=== PATIENT | male | born 1990 | race Caucasian/White ===

== ENCOUNTER 2022-03-29 09:00 | Outpatient (CLI) | payer OTHER, SELFPAY ==
[2022-03-29 09:16] LABS: Hematocrit 42.8 % (42.0-52.0); Hemoglobin 14.7 g/dL (14.0-18.0); Mean Corpuscular HGB Conc 34.3 g/dl (32-36); Mean Corpuscular Hemoglobin 30.5 pg (26-34); Mean Corpuscular Volume 88.8 fl (80-100); Mean Platelet Volume 9.5 fl (7.4-10.4); Platelet Count Result 227 k/mm3 (150-375); Red Blood Count 4.82 M/mm3 (4.6-6.20); White Blood Count 5.1 K/mm3 (4.5-10.0)
[2022-03-29 13:37] LABS: Free T4 Free Thyroxine Reflex 0.48 ng/dL (0.78-2.19)
[2022-04-03 11:12] LABS: TTG IGA AB <1.0
[2022-04-03 11:13] LABS: Gliadin AB, IgG <1.0
== END 2022-03-29 09:01 | disposition home or self-care (01) ==
PROVIDERS: Visit Provider Nurse Practitioner
DX: E66.9 Obesity, unspecified (principal); K21.9 Gastro-esophageal reflux disease without esophagitis; R19.7 Diarrhea, unspecified
CPT/HCPCS: 36415; 83516; 84439; 84443; 85027

== ENCOUNTER 2022-03-30 16:17 | Outpatient (CLI) | payer OTHER, SELFPAY ==
[2022-03-30 18:48] LABS: Free T4 Free Thyroxine Reflex 0.51 ng/dL (0.78-2.19)
[2022-04-02 05:28] LABS: Triiodothyronine T3 Free 2.7 pg/mL (2.3-4.2)
== END 2022-03-30 16:18 | disposition home or self-care (01) ==
LOC: ANHLAB 16:20
DX: R79.89 Other specified abnormal findings of blood chemistry (principal)
CPT/HCPCS: 36415; 84439; 84443; 84481

== ENCOUNTER 2022-03-31 09:05 | Outpatient (CLI) | payer OTHER, SELFPAY ==
[2022-04-06 21:54] LABS: Calprotectin, Stool 126 mcg/g
== END 2022-03-31 09:06 | disposition home or self-care (01) ==
LOC: ANHLAB 09:07
PROVIDERS: Visit Provider Nurse Practitioner
DX: R19.7 Diarrhea, unspecified (principal); K21.9 Gastro-esophageal reflux disease without esophagitis; E66.9 Obesity, unspecified
CPT/HCPCS: 83993

== ENCOUNTER 2022-05-05 01:37 | Day surgery (SDC) | payer OTHER, SELFPAY ==
[2022-04-26 14:43] VITALS: BMI 31.1
--- NOTE | 2022-05-05 12:00 | PM.HPGS ---
History of Present Illness History of Present Illness Consent: Risks, benefits, and alternatives have been discussed and questions answered. Patient agrees to proceed with procedure. Chief complaint: GERD; loose stools Narrative: Garry Rausch is a 31 year old male suffers from chronic nausea. 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 He has not lost weight. He did vomit once a couple of weeks ago. He also has had chronic diarrhea, ever since he was in college. It is exacerbated by drinking coffee. He gets lower abdominal cramping pain with bowel movements. Review of Systems Review of Systems: All systems reviewed & are unremarkable except as noted in HPI and below PMFSH Past Medical History Medical History Frequent loose stools Nausea Obesity (BMI 30-39.9) Social History Social History Smoking status: Never smoker Second hand tobacco smoke exposure: No Alcohol intake: current Alcohol use details: rarely - socially Substance use: former Substance use type: marijuana Other substance usage details: smoked last 10-15 years ago Living arrangements: with family Gender identity (if verbalized by the patient): Male Spiritual care concerns: No Meds Home Medications and Allergies Home Medications Medication Instructions Recorded Confirmed Type lansoprazole 30 mg capsule,delayed 30 mg PO DAILY #30 caps 04/04/22 04/26/22 Rx release (Prevacid) levothyroxine 50 mcg tablet 50 mcg PO DAILY 04/26/22 04/26/22 History Allergies Allergy/AdvReac Type Severity Reaction Status Date / Time No Known Allergies Allergy Unknown Verified 04/26/22 14:45 Exam Const: General: alert Orientation/consciousness: patient oriented x3 Resp: Auscultation: clear to auscultation bilaterally Cardio: Rhythm: regular rhythm GI: GI Palp: Yes Soft to palpation and No Tenderness to palpation present (GI) Neuro: General: patient oriented x3 Assessment and Plan Assessment and plan (1) Nausea: Code(s): R11.0 - Nausea Status: Acute Assessment and Plan: EGD with possible biopsy or dilatation or cautery. (2) Chronic diarrhea: Code(s): K52.9 - Noninfective gastroenteritis and colitis, unspecified Status: Acute Assessment and Plan: Colonoscopy with possible biopsy or polypectomy or cautery or injection of substances.
[2022-05-05 12:09] VITALS: BP 134/90; PULSE 82; RESP 16; TEMP 35.8; O2SAT 98
[2022-05-05] MEDS: LACTATED RINGERS 1,000 ML 150 ML IV CONT (12:23)
--- NOTE | 2022-05-05 12:36 | WPDANESEPPF ---
Anes - Initial Pre Proc Eval Procedure: Operation Date: 05/05/22 13:30 Proposed Procedures p Esophagogastroduodenoscopy & Colonoscopy - Thierry Mejía MD Date/Time: 05/05/22 12:36 Surgeon: Thierry Mejía MD Pre Op Diagnosis: GERD; loose stools Patient Data Age: 31 Gender: M Height: 1.65 m Weight: 83.6 kg Last Vital Signs Temp 35.8 C L 05/05/22 12:09 Pulse 82 05/05/22 12:09 Resp 16 05/05/22 12:09 BP 134/90 05/05/22 12:09 Pulse Ox 98 05/05/22 12:09 O2 Del Method Room Air 05/05/22 12:09 Allergies Allergy/AdvReac Type Severity Reaction Status Date / Time No Known Allergies Allergy Unknown Verified 05/05/22 12:07 Home Medications Medication Instructions Recorded Confirmed Type lansoprazole 30 mg capsule,delayed 30 mg PO DAILY #30 caps 04/04/22 05/05/22 Rx release (Prevacid) levothyroxine 50 mcg tablet 50 mcg PO DAILY 04/26/22 05/05/22 History Patient hx anesthesia problems: none Family hx anesthesia problems: none Results Review: All pre-operative results and documents have been reviewed as part of the pre-operative evaluation. [facility] Past Medical History Medical History Frequent loose stools Nausea Obesity (BMI 30-39.9) Social History Social History Smoking status: Never smoker Second hand tobacco smoke exposure: No Alcohol intake: current Alcohol use details: rarely - socially Substance use: former Substance use type: marijuana Other substance usage details: smoked last 10-15 years ago Living arrangements: with family Gender identity (if verbalized by the patient): Male Spiritual care concerns: No Anes - Eval Final PreProcedure Day of Procedure 05/05/22 12:36 Patient weight: obese Heart: regular rate and rhythm Lungs: clear to auscultation Airway: Mallampati scale class II Neurological: alert and oriented Last oral intake: >/= 8 hours ASA classification: II Emergent: no Anesthetic plan: proceed Anesthesia type and monitoring: general GIVS and standard monitoring Results Review: All pre-operative results and documents have been reviewed as part of the pre-operative evaluation. Informed Consent: The patient's anesthetic plan and its attendant risks and benefits were discussed with the patient/family/POA. Questions were solicited and answers provided to the satisfaction of the patient/family/POA.
[2022-05-05] MEDS: BENZOCAINE (*SP) 60 ML SPRAY CAN (HURRICAINE) 1 SPRAY MUCOUS MEM (12:48)
--- NOTE | 2022-05-05 13:12 | SUR.OPER ---
EGD START 1249, END 1251 COLONOSCOPY START 1257, END 1309
[2022-05-05 13:13] VITALS: BP 124/79; PULSE 92; RESP 16; O2SAT 95
[2022-05-05 13:23] VITALS: BP 112/73; PULSE 83; RESP 16; O2SAT 97
[2022-05-05 13:33] VITALS: BP 106/66; PULSE 70; RESP 16; O2SAT 97
== END 2022-05-05 13:50 | disposition home or self-care (01) ==
PROVIDERS: Visit Provider Internal Medicine Gastroenterology
PROC: 0DJ08ZZ Inspection of Upper Intestinal Tract, Via Natural or Artificial Opening Endoscopic (ICD-10-PCS; CPT 43235; principal; 2022-05-05 13:30)
DX: R11.0 Nausea (principal); K52.9 Noninfective gastroenteritis and colitis, unspecified; K21.9 Gastro-esophageal reflux disease without esophagitis
CPT/HCPCS: 43239; 45380; 87081; 88305; J2704; J7120

== ENCOUNTER → 2022-12-29 11:21 | Outpatient (CLI) | payer OTHER, SELFPAY ==
--- NOTE | ~2022-12-29 | XR_ITS ---
EXAM: XR finger 1st LT min 2V DATE: 12/29/2022 12:43 HISTORY: Left thumb pain . COMPARISON: None available. FINDINGS: Normal mineralization. Ossific fragment adjacent to the proximal and anterior corner of th e first distal phalanx. No dislocation. No lytic or blastic lesion. Joint spaces are maintained. No e rosion or periosteal change. Soft tissues within normal limits. IMPRESSION: Volar plate avulsion fracture fragment versus sesamoid bone at the first distal phalanx, correlate with pain/tenderness and history of trauma to the thumb. Reviewed, dictated and finalized at location K. IMPRESSION: Volar plate avulsion fracture fragment versus sesamoid bone at the first distal phalanx, correlate with pain/tenderness and history of trauma to t he thumb.
== END ==
DX: M79.645 Pain in left finger(s) (principal)
CPT/HCPCS: 73140

== ENCOUNTER → 2023-01-25 08:04 | Outpatient (CLI) | payer OTHER, SELFPAY ==
--- NOTE | ~2023-01-25 | XR_ITS ---
PA, oblique, and lateral views of the left fourth finger CLINICAL HISTORY: Pain FINDINGS: No fracture or dislocation seen. Osseous alignment is anatomic. Joint spaces are preserved. Soft tissues are unremarkable. IMPRESSION: Unremarkable exam. Reviewed, dictated and finalized at location M. IMPRESSION: Unremarkable exam.
== END ==
DX: M79.645 Pain in left finger(s) (principal)
CPT/HCPCS: 73140

== ENCOUNTER 2024-09-30 07:15 | Emergency (ER) | payer OTHER, SELFPAY ==
--- NOTE | ~2024-09-30 | CT_ITS ---
CT thoracic lumbar wo con Ordering provider: Violetta Kendrick MD History: . back pain . Comparison: None. Technique: CT thoracic and lumbar spine without contrast. Automated exposure control and iterative r econstruction technique were employed. The dose-length product was 600.94 mGy-cm. FINDINGS: VERTEBRAE: Normal height and alignment. No subluxation or visible acute fracture. DISC SPACES: Well maintained. . No significant stenosis as visualized. Mild diffuse disc bulge at the level of L3-L4, L4-L5 and L5-S1. No definite intervertebral foraminal narrowing. PARASPINOUS SOFT TISSUES: Normal. IMPRESSION: No acute osseous abnormality of the thoracic spine. Multilevel mild disc bulge. Reviewed, dictated and finalized at location A.
--- NOTE | ~2024-09-30 | CT_ITS ---
CT cervical spine wo con Ordering provider: Violetta Kendrick MD History: . pain in low back when flex neck . Comparison: None. Technique: CT of the cervical spine was performed without contrast. Sagittal and coronal reformatted images were also obtained and reviewed. Automated exposure control and iterative reconstruction vignesh hnique were employed. The dose-length product was 336.31 mGy-cm. FINDINGS: VERTEBRAE: No subluxation or acute fracture. The occipital condyles are intact. DISC SPACES: Normal. Narrowing of the left foramina at the level of C3-C4. Bilateral narrowing of the foramina at the level of C4-C5. Narrowing of the left foramina at the level of C5-C6. PARASPINOUS SOFT TISSUES: Normal. IMPRESSION: No acute osseous abnormality cervical spine. Reviewed, dictated and finalized at location A.
--- OUTSIDE RECORDS SUMMARY | 2024-09-30 07:17 | XMS_ITS | Referral Summary ---
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 Role Phone Reinier Canales Primary Care Provider Encounters Date Type Department Care Team Description 09/29/2024 12:15 PM CDT Office Visit [facility] at [address] [address] Aurea Reardon NP Acute bilateral low back pain without sciatica (Primary Dx) 08/19/2024 Telephone [facility] [address] [place] [address] Reinier Canales PA 07/05/2024 Telephone [facility] [address] [address] Tiff Small MA from Last 3 Months Allergies No known active allergies Medications RABEprazole DR (ACIPHEX) 20 mg EC tablet TAKE 1 TABLET(20 MG) BY MOUTH DAILY 30 tablet 1 04/17/20 23 Active minoxidiL 5 % solution Apply daily to affected area 10 mL 6 02/18/20 24 Active Additional Information Patient not taking.Reported on 09/29/2024 fluticasone propionate (FLONASE) 50 mcg/actuation nasal sprayIndications: Left ear pain Administer 2 sprays into each nostril daily for 14 days 1 each 04/11/20 24 Active Additional Information Patient not taking.Reported on 09/29/2024 al & mag hydroxide with simethicone-diphe nhydramine-lidoca ine (MAGIC MOUTHWASH) suspension 1-1-1 Swish and spit 10 mL every 4 (four) hours as needed (mouth pain) 200 mL 06/09/20 24 Active Additional Information Patient not taking.Reported on 09/29/2024 chlorhexidine (PERIDEX) 0.12 % oral rinse Apply 15 mL to the mouth or throat 2 (two) times a day 120 mL 06/09/20 24 Active Additional Information Patient not taking.Reported on 09/29/2024 azithromycin (ZITHROMAX) 250 mg tablet Take 2 tabs (500 mg) by mouth today, than 1 daily for 4 days. 6 tablet 08/15/19 25 Active Additional Information Patient not taking.Reported on 09/29/2024 escitalopram (LEXAPRO) 10 mg tabletIndications :Anxiety Take 1 tablet (10 mg total) by mouth daily 30 tablet 5 08/19/19 25 Active levothyroxine (SYNTHROID) 125 mcg tablet Take 1 tablet (125 mcg total) by mouth daily 90 tablet 1 08/27/19 25 026 Active lisdexamfetamine (VYVANSE) 20 mg capsuleIndication s:Attention deficit hyperactivity disorder (ADHD), combined type Take 1 capsule (20 mg total) by mouth every morning 30 capsule 09/25/19 25 Active methylPREDNISolon e (MEDROL DOSEPACK) 4 mg DosepackIndicatio ns:Acute bilateral low back pain without sciatica Take 6 tabs on day 1, reduce dose by 1 daily until prescription is complete. 1 packet 09/30/19 25 Active TiZANidine (ZANAFLEX) 2 mg capsuleIndication s:Acute bilateral low back pain without sciatica Take 1 capsule (2 mg total) by mouth 2 (two) times a day as needed for muscle spasms 20 capsule 09/30/19 25 Active naproxen (NAPROSYN) 500 mg tabletIndications :Right foot pain Take 1 tablet (500 mg total) by mouth 2 (two) times a day with meals for 7 days 14 tablet 04/11/20 24 025 Discontin ued(Thera py completed ) lisdexamfetamine (VYVANSE) 20 mg capsuleIndication s:Attention deficit hyperactivity disorder (ADHD), combined type Take 1 capsule (20 mg total) by mouth every morning 30 capsule 08/27/19 25 025 Discontin ued([facility], Clinic, or Other Facility Administered Medication Ordered Dose Route Frequency Start Date End Date Status ketorolac (TORADOL) 60 mg/2 mL intramuscular injection 60 mgIndications:Acute bilateral low back pain without sciatica 60 mg IM Once 09/29/2024 09/29/2024 Ended Active Problems Problem Noted Date Diagnosed Date 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 Hyperglycemia 04/08/2021 Candidiasis 04/08/2021 Annual physical exam 07/05/2020 Assessment & Plan (07/30/2023 10:41 AM STIFF LEG DERRICK OPERATOR): -Check in 1 year. Recommend heart healthy diet and exercise at least 30 minutes a day. Recommend flu shot annually. Recommend pneumonia shot starting at age 65, shingrix at 50. Colon cancer screening starting at 50 y/o, and PSA screening annually starting at 45 y/o. Yearly physical recommended. Assessment & Plan (07/13/2022 9:16 AM STIFF LEG DERRICK OPERATOR): Follow-up 1 year for annual physical. Continue eating healthy. Limit processed foods like white starches, fast food, sweets and soda. Increase your vegetable intake and limit red meat. Continue exercising and wearing your seatbelt at all times. No texting and driving. Continue to manage your stress in a healthy manner. Assessment & Plan (07/07/2021 8:33 AM STIFF LEG DERRICK OPERATOR): -Check in 1 year. Recommend heart healthy diet and exercise at least 30 minutes a day. Recommend flu shot annually. Recommend pneumonia shot starting at age 65, shingrix at 50. Colon cancer screening starting at 50 y/o, and PSA screening annually starting at 45 y/o. Yearly physical recommended. Assessment & Plan (07/05/2020 1:32 PM STIFF LEG DERRICK OPERATOR): -Check in 1 year. Recommend heart healthy diet and exercise at least 30 minutes a day. Recommend flu shot annually. Recommend pneumonia shot starting at age 65, shingrix at 50. Colon cancer screening starting at 50 y/o, and PSA screening annually starting at 45 y/o. Yearly physical recommended. Chronic nasal congestion 07/05/2020 Assessment & Plan (07/05/2020 1:33 PM STIFF LEG DERRICK OPERATOR): Recommend Xhance. Uses,risks,se's discussed Will request a sample from a software support representative. Epidermal cyst of neck 07/05/2020 Assessment & Plan (07/05/2020 1:34 PM STIFF LEG DERRICK OPERATOR): Monitor area for growth and painful If worsens will consider dermatology referral Immunizations Immunization Administration Dates Next Due DTP 03/19/1991, 0,01/16/1990,11/14 Hib (PRP-OMP) 01/15/1991,07/15/1990,05/14/1990 Influenza, Quadrivalent, Elaine l Culture-based MDCK, Preservative Free, Antibiotic Free, Intramuscular 04/18/2022 Influenza, Quadrivalent, Spl it, Preservative Free, Intramuscular 04/08/2021,07/05/2020 Influenza, Trivalent, Preser vative Free, Intramuscular 04/01/2024 Influenza, Unspecified 07/30/2023(Deferred: Julia ent Refused) MMR 01/15/1991 OPV 03/19/1991,01/16/1990,1989 Pfizer SARS-CoV-2 Monovalent Vaccination (12+ Yrs) PURPLE 05/23/2021,10/21/2020,09/30/2020 Social History Tobacco Use Types Packs/Day Years Used Date Smoking Tobacco: Never Smokeless Tobacco: Former Chew Quit: 02/11/2014 Tobacco Cessation:Counseling Given: Not Answered Comments:Chewed fir a few years Alcohol Use Standard Drinks/Week Comments Yes 0 (1 standard drink = 0.6 oz pur e alcohol) 0.2 drinks per week AUDIT-C Answer Date Recorded Q1: How often do you have a drink containing alc ohol? Monthly or less 04/01/2024 Q2: How many drinks containi ng alcohol do you have on a typical day when you are drinking? 1 or 2 04/01/2024 Q3: How often do you have si x or more drinks on one occasion? Never 04/01/2024 PHQ-2 Answer Date Recorded PHQ-2 Total Score (If total score is 3 or more points, staff should administer the PHQ-9) 0 07/30/2023 Personal Safety Answer Date Recorded Have you ever been in or are you currently in a harmful physical or emotional relationship or is someone making you feel afraid or unsafe? Denies 01/01/2023 Sex and Gender Information Value Date Recorded Sex Assigned at Not on file Legal Sex Male 3:38 PM STIFF LEG DERRICK OPERATOR Gender Identity Male 10/11/2020 1:08 PM CDT Sexual Orientation Straight 10/11/2020 1: 08 PM CDT Last Filed Vital Signs Vital Sign Reading Time Taken Comments Blood Pressure 128/94 09/29/2024 12:17 PM CDT Pulse 78 09/29/2024 12:17 PM CDT Temperature 36.8 C (98.2 F) 09/29/2024 12:17 PM CDT Respiratory Rate 20 09/29/2024 12:17 PM CDT Oxygen Saturation 98% 09/29/2024 12:17 PM CDT Inhaled Oxygen Concentration - - Weight 72.1 kg (159 lb) 09/29/2024 12:17 PM CDT Height 165.1 cm (5' 5 ) 09/29/2024 12:17 PM CDT Body Mass Index 26.46 09/29/2024 12:17 PM CDT Plan of Treatment Not on file Insurance [facility] HMO [facility] HMO [facility] H[facility] Care Teams 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
--- OUTSIDE RECORDS SUMMARY | 2024-09-30 07:17 | XMS_ITS | Clinical Summary ---
Author Organization [facility] Address [address] [place] [address] Care Team Providers Care Enroller Name Role Phone Unavailable Primary Care Provider Unavailabl e Source Comments [facility],non-owned Affiliates and Associated Physician Practices is amultiple site organization consisting of ambulatory clinics and hospital sitesin [place] and [place]. This disclosure is being madepursuant to the Care Everywhere program and may not contain all information available regarding this patient. Last updated 18.[facility] Allergies No known active allergies Medications * Be aware that medications may not be up to date on this document. Alwaysverify current medications with the patient. Medication Sig Dispensed Refills Start Date End Date Status amoxicillin-clavulanate (AUGMENTIN) 250-125 MG tablet Take 250 mg by mouth every 8 hours Active Immunizations Name Administration Dates Next Due Covid Intelligent Fingerprinting primary monoval ent 12+ yr 0.3mL Purple cap 10/21/2020,09/30/2020 Social History Tobacco Use Types Packs/Day Years Used Date Smoking Tobacco: Never Smokeless Tobacco: Never Alcohol Use Standard Drinks/Week Comments Not Currently 0 (1 standard drink = 0.6 oz pur e alcohol) Sex and Gender Information Value Date Recorded Sex Assigned at Male 09/29/2020 6:54 PM CDT Gender Identity Male 09/29/2020 6:54 PM CDT Sexual Orientation Straight 09/29/2020 6: 54 PM CDT Last Filed Vital Signs Vital Sign Reading Time Taken Comments Blood Pressure 130/80 08/26/2020 1:51 PM MERCHANDISE DELIVERER Pulse 71 08/26/2020 1:51 PM MERCHANDISE DELIVERER Temperature 36.6 C (97.8 F) 08/24/2020 6:00 AM MERCHANDISE DELIVERER Respiratory Rate 18 08/24/2020 6:00 AM MERCHANDISE DELIVERER Oxygen Saturation 97% 08/26/2020 1:51 PM MERCHANDISE DELIVERER Inhaled Oxygen Concentration - - Weight 84.6 kg (186 lb 6.4 oz) 08/26/2020 1:51 P M MERCHANDISE DELIVERER Height 165.1 cm (5' 5 ) 08/26/2020 1:51 PM MERCHANDISE DELIVERER Body Mass Index 31.02 08/26/2020 1:51 PM MERCHANDISE DELIVERER Plan of Treatment Health Maintenance Due Date Last Done Comments HIV SCREENING 2004 HEPATITIS C SCREENING 09/15/2007 DTAP/TDAP/TD VACCINES (1 - Tdap) 2008 HEPATITIS B VACCINE (1 of 3 - 19+ 3-dose series) 2008 COVID-19 VACCINE (3 - 2023-2 5 season) 2024 10/21/2020, 09/30/2020 DEPRESSION SCREENING 06/25/2024 INFLUENZA VACCINE (Season Ended) 2025 07/05/2020 ZOSTER VACCINE (1 of 2) 09/20/2039 HIB VACCINE Aged Out No longer eligi ble based on patient's age to complete this topic HPV VACCINE Aged Out No longer eligi ble based on patient's age to complete this topic MENINGOCOCCAL (Group B) VACCINE SHARED DECISION-MAKING Aged Out No longer eligible based on patient's age to complete this topic MENINGOCOCCAL GROUPS A/C/Y/W VACCINE Aged Out No longer eligible b ased on patient's age to complete this topic PNEUMOCOCCAL VACCINE Aged Out No long er eligible based on patient's age to complete this topic
--- OUTSIDE RECORDS SUMMARY | 2024-09-30 07:17 | XMS_ITS | Encounter Summary ---
Author Organization [facility] [place] [address] [place] [address] Care Team Providers Care Clerk Television Production Name Role Phone Unavailable Primary Care Provider Unavailabl e Prior Encounters Date Type Department Care Team Description 07/14/2019 Converted CPS Chart Documents [facility] [address] [place] [address] <No scans attached> 07/14/2019 Converted 13x Documents [facility] [address] [place] [address] <No scans attached> Plan of Treatment Not on file Procedures Procedure Name Priority Date/Time Associated Diagnosis Comments 9 CEMENT CROWN Routine 08/17/2014 2:00 AM FOOTWEAR SALES REPRESENTATIVE 8 CEMENT CROWN Routine 08/17/2014 2:00 AM FOOTWEAR SALES REPRESENTATIVE NC X-RAY Routine 08/17/2014 2:00 AM FOOTWEAR SALES REPRESENTATIVE EXTERNAL BLEACHING - PER ARCH - PERFORMED IN OFFICE Routine 08/14/2014 2:00 AM FOOTWEAR SALES REPRESENTATIVE 9 CEREC PROF CRN CRTSY Routine 5 2:00 AM FOOTWEAR SALES REPRESENTATIVE 8 CEREC PROF CRN CRTSY Routine 5 2:00 AM FOOTWEAR SALES REPRESENTATIVE TOPICAL APPLICATION OF FLUORIDE VARNISH Routine 08/14/2014 2:00 AM FOOTWEAR SALES REPRESENTATIVE COMPREHENSIVE ORAL EVALUATION - NEW OR ESTABLISHED PATIENT Routine 08/14/2014 2:00 AM FOOTWEAR SALES REPRESENTATIVE ORAL HYGIENE INSTRUCTIONS Routine 2014 2:00 AM FOOTWEAR SALES REPRESENTATIVE PROPHYLAXIS - ADULT Routine 08/14/2014 2 :00 AM FOOTWEAR SALES REPRESENTATIVE PANORAMIC RADIOGRAPHIC IMAGE Routine 08/14/2014 2:00 AM FOOTWEAR SALES REPRESENTATIVE INTRAORAL - COMPREHENSIVE SERIES OF RADIOGRAPHIC IMAGES Routine 08/14/2014 2:00 AM FOOTWEAR SALES REPRESENTATIVE INTRAORAL PHOTO Routine 08/14/2014 2:00 AM FOOTWEAR SALES REPRESENTATIVE INTRAORAL PHOTO Routine 08/14/2014 2:00 AM FOOTWEAR SALES REPRESENTATIVE INTRAORAL PHOTO Routine 08/14/2014 2:00 AM FOOTWEAR SALES REPRESENTATIVE 9 MIDFL COMPOSITE FILLING Routine 2014 2:00 AM FOOTWEAR SALES REPRESENTATIVE 8 MIDFL COMPOSITE FILLING Routine 2014 2:00 AM FOOTWEAR SALES REPRESENTATIVE 18 SRIKANTH COMPOSITE FILLING Routine 08/14/19 15 2:00 AM FOOTWEAR SALES REPRESENTATIVE 15 LO COMPOSITE FILLING Routine 08/14/19 15 2:00 AM FOOTWEAR SALES REPRESENTATIVE 2 LO COMPOSITE FILLING Routine 5 2:00 AM FOOTWEAR SALES REPRESENTATIVE 10 L COMPOSITE FILLING Routine 5 2:00 AM FOOTWEAR SALES REPRESENTATIVE 30 B COMPOSITE FILLING Routine 5 2:00 AM FOOTWEAR SALES REPRESENTATIVE Visit Diagnoses Not on file
--- OUTSIDE RECORDS SUMMARY | 2024-09-30 07:17 | XMS_ITS | Encounter Summary ---
Author Organization [facility] Healthcare Address [address] [place] [address] Care Team Providers Care Pit Furnace Melter Name Role Phone Reinier Canales Primary Care Provider Reason for Visit * Reason Comments Back Pain Patient here for c/o severe back pain for the last 2-3 weeks. 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 Steroid pack ordered, patient will start this tomorrow 09/30/24 Take muscle relaxer 2 times daily as needed for back and muscle spasms. Take this mainly at night. You cannot drive or operate heavy machinery after taking this. You may use over the counter lidocaine patches 4% commonly branded as Salon Pas or Asprecreme Lidocaine Patches as needed. Apply patch to the affected are for 12 hours and then remove for 12 hours. Follow up with primary care provider in 2 weeks or sooner if symptoms worsen. If you begin to have any numbness/tingling down the legs or loss of bowel/bladder control, go to the Emergency Room. ? * Attachments The following attachments cannot be sent through Care Everywhere. * Back Pain (Wholesale Loan Processor) (Romansh) documented in this encounter Ordered Prescriptions Prescription Sig Dispense Quantity Refills Last Filled Start Date End Date TiZANidine (ZANAFLEX) 2 mg capsuleIndication s:Acute bilateral low back pain without sciatica Take 1 capsule (2 mg total) by mouth 2 (two) times a day as needed for muscle spasms 20 capsule 09/29/2024 methylPREDNISolon e (MEDROL DOSEPACK) 4 mg DosepackIndicatio ns:Acute bilateral low back pain without sciatica Take 6 tabs on day 1, reduce dose by 1 daily until prescription is complete. 1 packet 09/29/2024 documented in this encounter Progress Notes * Aurea Reardon, INGOT HEADER - 09/29/2024 12:15 PM CDT Images from the original note were not included. Subjective/Objective Patient ID: Garry Rausch is a 34 y.o. male. Chief Complaint Back Pain (Patient here for c/o severe back pain for the last 2-3 weeks. ) Patient presents to the clinic with reports of low back pain for the past 2-3 weeks. Patient reports he has had this issue in the past about 4 years ago. Patient denies any injury, history back surgery, fevers, numbness, loss of sensation down legs, and issues with bowel or bladder. He has taken Tylenol, ibuprofen, ice, and heat for his symptoms. Patient reports he has not taken anything today for his symptoms. Review of Systems Constitutional: Negative for chills, fatigue and fever. Eyes: Negative for visual disturbance. Respiratory: Negative for cough. Cardiovascular: Negative for chest pain. Genitourinary: Negative for difficulty urinating. Musculoskeletal: Positive for back pain (lower). Skin: Negative for color change and wound. Neurological: Negative for weakness, numbness and headaches. Physical Exam Vitals reviewed. Constitutional: General: He is not in acute distress. Appearance: Normal appearance. He is not ill-appearing. HENT: Head: Normocephalic. Mouth/Throat: Lips: [place]. Cardiovascular: Rate and Rhythm: Normal rate. Pulmonary: Effort: Pulmonary effort is normal. Breath sounds: Normal breath sounds. Musculoskeletal: Cervical back: Normal. Thoracic back: Normal. Lumbar back: Spasms and tenderness present. No swelling, edema, deformity, signs of trauma or lacerations. Normal range of motion. Back: Skin: General: Skin is warm. Neurological: Mental Status: He is alert and oriented to person, place, and time. Psychiatric: Mood and Affect: Mood normal. Vitals: 09/29/24 1217 BP: 128/94 Pulse: 78 Resp: 20 Temp: 36.8 ??C (98.2 ??F) SpO2: 98% Weight: 72.1 kg (159 lb) Height: 165.1 cm (5' 5 ) Assessment/Plan # muscle strain of lower back --start muscle relaxer as needed. Discussed no driving or operating heavy machinery while taking a muscle relaxer --use of NSAID, OTC for pain management. Patient aware not taken NSAIDs until tomorrow, patient given Toradol in office. He sat for 15 minutes after injection with no reported issues. --Discussed applying heat for pain relief, such as using a heating pad. Be careful not to burn yourself --encouraged stretching, Rest and ice --Discusses Salonpas pain patches --f/u with PCP or in ER if symptoms worsen or persist. Diagnoses and all orders for this visit: Acute bilateral low back pain without sciatica (Primary) - ketorolac (TORADOL) 60 mg/2 mL intramuscular injection 60 mg - methylPREDNISolone (MEDROL DOSEPACK) 4 mg Dosepack; Take 6 tabs on day 1, reduce dose by 1 daily until prescription is complete. - TiZANidine (ZANAFLEX) 2 mg capsule; Take 1 capsule (2 mg total) by mouth 2 (two) times a day as needed for muscle spasms Patient Education: Treatment of Back Pain: Take Ibuprofen (Starting tomorrow 09/30/24, got Injection in office) or tylenol as needed for pain and inflammation. Steroid pack ordered, patient will start this tomorrow 09/30/24 Take muscle relaxer 2 times daily as needed for back and muscle spasms. Take this mainly at night. You cannot drive or operate heavy machinery after taking this. You may use over the counter lidocaine patches 4% commonly branded as Salon Pas or Asprecreme Lidocaine Patches as needed. Apply patch to the affected are for 12 hours and then remove for 12 hours. Follow up with primary care provider in 2 weeks or sooner if symptoms worsen. If you begin to have any numbness/tingling down the legs or loss of bowel/bladder control, go to the Emergency Room. ? Disposition Treatment plan including expectations, follow up, and return precautions discussed with patient/parent, verbalizes understanding. Medication dosage, use, and potential adverse reactions discussed with patient/parent. Advised to follow up with PCP if symptoms do not resolve as expected or sooner if condition worsens. Signs/symptoms warranting ER evaluation reviewed. Patient and/or guardian was given an opportunity to ask questions, questions answered. Aurea Reardon NP 09/29/24 12:49 PM This office note has been partially dictated using Buzztala software, and as a result portions of the record may have been created with this software. Occasional wrong-word or '[id number]' substitutions may have occurred due to the inherent limitations of voice recognition software. Read the chartcarefully and recognize, using context, where substitutions have occurred. Cosigned by Polo Pérez MD at 09/29/2024 1:29 PM CDT documented in this encounter Plan of Treatment Not on file documented as of this encounter Visit Diagnoses Diagnosis Acute bilateral low back pain without sciatica- Primary documented in this encounter Administered Medications Inactive Administered Medications - up to 3 most recent administrations Medication Order MAR Action Action Date Dose Rate Site ketorolac (TORADOL) 60 mg/2 mL intramuscular injection 60 mg 60 mg, intramuscular, Once, On Sun09/29/24 at 1300, For 1 doseIndications:Acute bilateral low back pain without sciatica Given 09/29/2024 12:33 PM CDT 60 mg Left Ventrogluteal documented in this encounter Discontinued Medications Medication Sig Discontinue Reason Start Date End Da te naproxen (NAPROSYN) 500 mg tabletIndications:Right foot pain Take 1 tablet (500 mg total) by mouth 2 (two) times a day with meals for 7 days Therapy completed 04/11/2024 09/29/2024 documented as of this encounter Orders Medications Ordered That Gómez ht Not Have Been Administered Count Last Ordered Date First Ordered Date ketorolac (TORADOL) 60 mg/2 mL intramuscular injection 60 mg 1 09/29/2024 documented in this encounter Care Teams Pit Furnace Melter Relationship Specialty Start Date End Date Reinier Canales PA [address] [place] [address] PCP - General Family Medicine 10/14/20 documented as of this encounter
--- OUTSIDE RECORDS SUMMARY | 2024-09-30 07:17 | XMS_ITS | Encounter Summary ---
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
--- OUTSIDE RECORDS SUMMARY | 2024-09-30 07:17 | XMS_ITS | Clinical Summary ---
Author Organization [facility] Address [address] [place] [address] Care Team Providers Care Building Mover Name Role Phone Luis Kathleen MD Primary Care Provider Social History Tobacco Use Types Packs/Day Years Used Date Smoking Tobacco: Never Assessed Sex and Gender Information Value Date Recorded Sex Assigned at Not on file Legal Sex Male 9:05 AM CDT Gender Identity Not on file Sexual Orientation Not on file Plan of Treatment Health Maintenance Due Date Last Done Comments Annual Physical 1992 DTaP, Tdap and Td Vaccines (5 - Tdap) 2000 03/19/1991, 03/20/1990, 01/16/1990, Additional history exists Hepatitis C 09/20/2007 Hepatitis B Vaccines (1 of 3 - 19+ 3-dose series) 2008 COVID-19 Vaccine ( season) 2024 05/23/2021, 10/21/2020, 09/30/2020 HPV Vaccines Aged Out No longer eligi ble based on patient's age to complete this topic Meningococcal B Vaccine Aged Out No l onger eligible based on patient's age to complete this topic Meningococcal Vaccine Aged Out No marcial nahomi eligible based on patient's age to complete this topic Pneumococcal Vaccine: Pediatrics (0 to 5 Years) and At-Risk Patients (6 to 64 Years) Aged Out No longer eligible based on patient's age to complete this topic RSV Immunizations Under 20 Months Aged Out No longer eligible based on patient's age to complete this topic Insurance [employer] Care Teams Building Mover Relationship Specialty Start Date End Date Luis Kathleen MD [address] [place] [address] PCP - General FAMILY PRACTICE 04/11/23
--- OUTSIDE RECORDS SUMMARY | 2024-09-30 07:17 | XMS_ITS | Clinical Summary ---
Author Organization [facility] [place] [address] [place] [address] Care Team Providers Care Recycling Attendant Name Role Phone Unavailable Primary Care Provider Unavailabl e Social History Tobacco Use Types Packs/Day Years Used Date Smoking Tobacco: Never Assessed Sex and Gender Information Value Date Recorded Sex Assigned at Not on file Legal Sex Male 1:02 AM PST Gender Identity Not on file Sexual Orientation Not on file Plan of Treatment Not on file
--- OUTSIDE RECORDS SUMMARY | 2024-09-30 07:17 | XMS_ITS | Clinical Summary ---
Author Organization [place] [id number] [facility] Address [facility] [place] [address] Care Team Providers Care Technology Training Associate Name Role Phone Reinier Canales Primary Care Provider Allergies No known active allergies Medications RABEprazole [...] morning 30 capsule 08/27/19 25 025 Discontin ued(Formerly [facility]) Hospital, Clinic, or Other Facility Administered Medication Ordered Dose Route Frequency Start Date End Date Status ketorolac (TORADOL) 60 mg/2 mL intramuscular injection 60 mgIndications:Acute bilateral low back pain without sciatica 60 mg IM Once 09/29/2024 09/29/2024 Ended Active Problems Problem Noted Date Diagnosed Date 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 Assessment & Plan (07/30/2023 10:43 AM INFORMATION TECHNOLOGY ACCOUNT MANAGER): Stable on levothyroxine No change to treatment Attention deficit hyperactiv ity disorder (ADHD), combined type 07/30/2023 Assessment & Plan (07/30/2023 1:04 PM INFORMATION TECHNOLOGY ACCOUNT MANAGER): Start vyvanse 20mg Uses,risks,se's discussed Follow up in 6 months if needed Gastroesophageal reflux disease without esophagi tis 07/07/2021 Assessment & Plan (07/07/2021 1:16 PM INFORMATION TECHNOLOGY ACCOUNT MANAGER): Recommend pepcid 20mg twice a day for 4-6 weeks to help with chest pain and acid reflux type symptoms Follow up if no improvement. Hyperglycemia 04/08/2021 Candidiasis 04/08/2021 Annual physical exam 07/05/2020 Assessment & Plan (07/30/2023 10:41 AM INFORMATION TECHNOLOGY ACCOUNT MANAGER): -Check in 1 year. Recommend heart healthy diet and exercise at least 30 minutes a day. Recommend flu shot annually. Recommend pneumonia shot starting at age 65, shingrix at 50. Colon cancer screening starting at 50 y/o, and PSA screening annually starting at 45 y/o. Yearly physical recommended. Assessment & Plan (07/13/2022 9:16 AM INFORMATION TECHNOLOGY ACCOUNT MANAGER): Follow-up 1 year for annual physical. Continue eating healthy. Limit processed foods like white starches, fast food, sweets and soda. Increase your vegetable intake and limit red meat. Continue exercising and wearing your seatbelt at all times. No texting and driving. Continue to manage your stress in a healthy manner. Assessment & Plan (07/07/2021 8:33 AM INFORMATION TECHNOLOGY ACCOUNT MANAGER): -Check in 1 year. Recommend heart healthy diet and exercise at least 30 minutes a day. Recommend flu shot annually. Recommend pneumonia shot starting at age 65, shingrix at 50. Colon cancer screening starting at 50 y/o, and PSA screening annually starting at 45 y/o. Yearly physical recommended. Assessment & Plan (07/05/2020 1:32 PM INFORMATION TECHNOLOGY ACCOUNT MANAGER): -Check in 1 year. Recommend heart healthy diet and exercise at least 30 minutes a day. Recommend flu shot annually. Recommend pneumonia shot starting at age 65, shingrix at 50. Colon cancer screening starting at 50 y/o, and PSA screening annually starting at 45 y/o. Yearly physical recommended. Chronic nasal congestion 07/05/2020 Assessment & Plan (07/05/2020 1:33 PM INFORMATION TECHNOLOGY ACCOUNT MANAGER): Recommend Xhance. Uses,risks,se's discussed Will request a sample from a sales representative metals. Epidermal cyst of neck 07/05/2020 Assessment & Plan (07/05/2020 1:34 PM INFORMATION TECHNOLOGY ACCOUNT MANAGER): Monitor area for growth and painful If worsens will consider dermatology referral Encounters Date Type Department Care Team Description 09/29/2024 12:15 PM CDT Office Visit [facility] Medical Group Convenient Care at [address] [address] Aurea Reardon NP Acute bilateral low back pain without sciatica (Primary Dx) 08/19/2024 Telephone [facility] Family Medicine [address] [place] [address] Reinier Canales PA 07/05/2024 Telephone [facility] Medical Group Convenient Care at [address] [address] Tiff Small MA from Last 3 Months Immunizations Immunization Administration Dates Next Due DTP 03/19/1991, 0,01/16/1990,11/14 Hib (PRP-OMP) 01/15/1991,07/15/1990,05/14/1990 Influenza, Quadrivalent, Elaine l Culture-based MDCK, Preservative Free, Antibiotic Free, Intramuscular 04/18/2022 Influenza, Quadrivalent, Spl it, Preservative Free, Intramuscular 04/08/2021,07/05/2020 Influenza, Trivalent, Preser vative Free, Intramuscular 04/01/2024 Influenza, Unspecified 07/30/2023(Deferred: Julia ent Refused) MMR 01/15/1991 OPV 03/19/1991,01/16/1990,1989 Pfizer SARS-CoV-2 Monovalent Vaccination (12+ Yrs) PURPLE 05/23/2021,10/21/2020,09/30/2020 Surgical History Surgery Date Site/Laterality Comments CYST REMOVAL back of neck ESOPHAGOGASTRODUODENOSCOPY with colonscopy Medical History Medical History Date Comments Kidney stone x2 Hypothyroidism GERD (gastroesophageal reflux disease) Family History Medical History Relation Name Comments Gastroesophageal Reflux Disease Brother 1 Gastroesophageal Reflux Disease Brother 2 Hypothyroidism Brother 2 Gastroesophageal Reflux Disease Father Hyperlipidemia Father Alcohol abuse Mother Leisa Bipolar disorder Mother Leisa Mental illness Mother Leisa murdered Mother Leisa Gastroesophageal Reflux Disease Son 1 Relation Name Status Comments Brother 1 Alive Brother 2 Alive Father Alive Mother Leisa suicide Son 1 Alive Social History Tobacco Use Types Packs/Day Years [...] on file Legal Sex Male 3:38 PM INFORMATION TECHNOLOGY ACCOUNT MANAGER Gender Identity Male 10/11/2020 1:08 PM CDT Sexual Orientation Straight 10/11/2020 1: 08 PM CDT Obstetrics History Last Filed Vital Signs Vital Sign Reading [...] 09/29/2024 12:17 PM CDT Plan of Treatment Health Maintenance Due Date Last Done Comments Hepatitis C Screening 1989 DTaP/Tdap/Td Vaccine (5 - Tdap) 2000 03/19/1991, 03/20/1990, 01/16/1990, Additional history exists Hepatitis B Screening 09/20/2007 Depression Screening 07/30/2024 07/30/2023, 07/13/2022, 07/07/2021, Additional history exists Regular Well Visit/Exam 18-64 07/30/2024 07/30/2023, 07/13/2022, 07/07/2021, Additional history exists Covid-19 Vaccine () 04/01/2025 05/23/2021, 10/21/2020, 09/30/2020 Postponed from 02/24/2024 (Patient declined, but will receive in the future) Influenza Vaccine Completed 04/01/2024, , 04/08/2021, Additional history exists HPV Vaccines Aged Out No longer eligi ble based on patient's age to complete this topic Pneumococcal vaccine <65 Aged Out No longer eligible based on patient's age to complete this topic Varicella Vaccines Discontinued [facility] Care Teams Technology Training Associate Relationship Specialty Start Date End Date Reinier Canales PA [facility] [facility] [address] [place] [address] PCP - General Family Medicine 10/14/20
[2024-09-30 07:19] VITALS: BP 153/83; PULSE 89; RESP 17; TEMP 36.4; O2SAT 100
--- OUTSIDE RECORDS SUMMARY | 2024-09-30 08:21 | XMS_ITS | Encounter Summary ---
Author Organization [facility] Healthcare Address [address] [place] [address] Care Team Providers Care Tube Lancer Name Role Phone Reinier Canales Primary Care Provider Reason for Visit * Reason Comments Back Pain Patient here for c/o severe back pain for the last 2-3 weeks. 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 * Back Pain (Bobbin Fixer) (Bengali) documented in this encounter Ordered Prescriptions Prescription [...] this encounter Progress Notes * Aurea Reardon, SOAKER MEAT - 09/29/2024 12:15 PM CDT Images from [...] not ill-appearing. HENT: Head: Normocephalic. Mouth/Throat: Lips: [place]. Cardiovascular: Rate and Rhythm: Normal rate. Pulmonary: [...] office note has been partially dictated using Enbase software, and as a result portions of the record may have been created with this software. Occasional wrong-word or '[id number]' substitutions may have occurred due to the [...] 09/29/2024 documented in this encounter Care Teams Tube Lancer Relationship Specialty Start Date End Date Reinier Canales PA [address] [place] [address] PCP - General Family Medicine 10/14/20 documented as of this encounter
--- OUTSIDE RECORDS SUMMARY | 2024-09-30 08:22 | XMS_ITS | Referral Summary ---
Author Organization [place] [id number] [facility] Address [address] [place] [address] Care Team Providers Care Spinning Room Worker Name Role Phone Reinier Canales Primary Care Provider Encounters Date Type Department Care Team Description 09/29/2024 12:15 PM CDT Office Visit [facility] at [address] [address] Aurea Reardon NP Acute bilateral low back pain without sciatica (Primary Dx) 08/19/2024 Telephone [facility] Family Medicine [address] [place] [address] Reinier Canales PA 07/05/2024 Telephone [facility] at [address] [address] Tiff Small MA from Last [...] morning 30 capsule 08/27/19 25 025 Discontin ued([facility]) Hospital, Clinic, or Other Facility Administered Medication Ordered Dose Route Frequency Start Date End Date Status ketorolac (TORADOL) 60 mg/2 mL intramuscular injection 60 mgIndications:Acute bilateral low back pain without sciatica 60 mg IM Once 09/29/2024 09/29/2024 Ended Active Problems Problem Noted Date Diagnosed Date 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 Assessment & Plan (07/30/2023 10:43 AM ELECTRICAL ENGINEERING DIRECTOR): Stable on levothyroxine No change to treatment Attention deficit hyperactiv ity disorder (ADHD), combined type 07/30/2023 Assessment & Plan (07/30/2023 1:04 PM ELECTRICAL ENGINEERING DIRECTOR): Start vyvanse 20mg Uses,risks,se's discussed Follow up in 6 months if needed Gastroesophageal reflux disease without esophagi tis 07/07/2021 Assessment & Plan (07/07/2021 1:16 PM ELECTRICAL ENGINEERING DIRECTOR): Recommend pepcid 20mg twice a day for 4-6 weeks to help with chest pain and acid reflux type symptoms Follow up if no improvement. Hyperglycemia 04/08/2021 Candidiasis 04/08/2021 Annual physical exam 07/05/2020 Assessment & Plan (07/30/2023 10:41 AM ELECTRICAL ENGINEERING DIRECTOR): -Check in 1 year. Recommend heart healthy diet and exercise at least 30 minutes a day. Recommend flu shot annually. Recommend pneumonia shot starting at age 65, shingrix at 50. Colon cancer screening starting at 50 y/o, and PSA screening annually starting at 45 y/o. Yearly physical recommended. Assessment & Plan (07/13/2022 9:16 AM ELECTRICAL ENGINEERING DIRECTOR): Follow-up 1 year for annual physical. Continue eating healthy. Limit processed foods like white starches, fast food, sweets and soda. Increase your vegetable intake and limit red meat. Continue exercising and wearing your seatbelt at all times. No texting and driving. Continue to manage your stress in a healthy manner. Assessment & Plan (07/07/2021 8:33 AM ELECTRICAL ENGINEERING DIRECTOR): -Check in 1 year. Recommend heart healthy diet and exercise at least 30 minutes a day. Recommend flu shot annually. Recommend pneumonia shot starting at age 65, shingrix at 50. Colon cancer screening starting at 50 y/o, and PSA screening annually starting at 45 y/o. Yearly physical recommended. Assessment & Plan (07/05/2020 1:32 PM ELECTRICAL ENGINEERING DIRECTOR): -Check in 1 year. Recommend heart healthy diet and exercise at least 30 minutes a day. Recommend flu shot annually. Recommend pneumonia shot starting at age 65, shingrix at 50. Colon cancer screening starting at 50 y/o, and PSA screening annually starting at 45 y/o. Yearly physical recommended. Chronic nasal congestion 07/05/2020 Assessment & Plan (07/05/2020 1:33 PM ELECTRICAL ENGINEERING DIRECTOR): Recommend Xhance. Uses,risks,se's discussed Will request a sample from a field marketing representative. Epidermal cyst of neck 07/05/2020 Assessment & Plan (07/05/2020 1:34 PM ELECTRICAL ENGINEERING DIRECTOR): Monitor area for growth and painful If [...] on file Legal Sex Male 3:38 PM ELECTRICAL ENGINEERING DIRECTOR Gender Identity Male 10/11/2020 1:08 PM CDT [...] Plan of Treatment Not on file Insurance [facility] HMO [facility] HMO [facility] HMO Care Teams Spinning Room Worker Relationship Specialty Start Date End Date Reinier Canales PA [address] [facility] [address] [place] [id number] PCP - General Family Medicine 10/14/20
--- OUTSIDE RECORDS SUMMARY | 2024-09-30 08:22 | XMS_ITS | Clinical Summary ---
Author Organization [place] [id number] 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 Hyperglycemia 04/08/2021 Candidiasis 04/08/2021 Annual physical exam 07/05/2020 Assessment & Plan (07/30/2023 10:41 AM SHEETER MACHINE OPERATOR): -Check in 1 year. Recommend heart healthy diet and exercise at least 30 minutes a day. Recommend flu shot annually. Recommend pneumonia shot starting at age 65, shingrix at 50. Colon cancer screening starting at 50 y/o, and PSA screening annually starting at 45 y/o. Yearly physical recommended. Assessment & Plan (07/13/2022 9:16 AM SHEETER MACHINE OPERATOR): Follow-up 1 year for annual physical. Continue eating healthy. Limit processed foods like white starches, fast food, sweets and soda. Increase your vegetable intake and limit red meat. Continue exercising and wearing your seatbelt at all times. No texting and driving. Continue to manage your stress in a healthy manner. Assessment & Plan (07/07/2021 8:33 AM SHEETER MACHINE OPERATOR): -Check in 1 year. Recommend heart healthy diet and exercise at least 30 minutes a day. Recommend flu shot annually. Recommend pneumonia shot starting at age 65, shingrix at 50. Colon cancer screening starting at 50 y/o, and PSA screening annually starting at 45 y/o. Yearly physical recommended. Assessment & Plan (07/05/2020 1:32 PM SHEETER MACHINE OPERATOR): -Check in 1 year. Recommend heart healthy diet and exercise at least 30 minutes a day. Recommend flu shot annually. Recommend pneumonia shot starting at age 65, shingrix at 50. Colon cancer screening starting at 50 y/o, and PSA screening annually starting at 45 y/o. Yearly physical recommended. Chronic nasal congestion 07/05/2020 Assessment & Plan (07/05/2020 1:33 PM SHEETER MACHINE OPERATOR): Recommend Xhance. Uses,risks,se's discussed Will request a sample from a community health program representative. Epidermal cyst of neck 07/05/2020 Assessment & Plan (07/05/2020 1:34 PM SHEETER MACHINE OPERATOR): Monitor area for growth and painful If worsens will consider dermatology referral Encounters Date Type Department Care Team Description 09/29/2024 12:15 PM CDT Office Visit [facility] at [address] [address] Aurea Reardon NP Acute bilateral low back pain without sciatica (Primary Dx) 08/19/2024 Telephone [facility] Family Medicine [address] [place] [address] Reinier Canales PA 07/05/2024 Telephone [facility] at [address] [address] Tiff Small MA from Last [...] on file Legal Sex Male 3:38 PM SHEETER MACHINE OPERATOR Gender Identity Male 10/11/2020 1:08 PM [...] complete this topic Varicella Vaccines Discontinued [facility] Care Teams Cinder Man Relationship Specialty Start Date End Date Reinier Canales PA [facility] [facility] [address] [place] [address] PCP - General Family Medicine 10/14/20
--- OUTSIDE RECORDS SUMMARY | 2024-09-30 08:22 | XMS_ITS | Clinical Summary ---
Author Organization [facility] Address [address] [place] [address] Care Team Providers Care Financial Investment Adviser Name Role Phone Unavailable Primary Care Provider [...]
--- OUTSIDE RECORDS SUMMARY | 2024-09-30 08:22 | XMS_ITS | Encounter Summary ---
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
--- OUTSIDE RECORDS SUMMARY | 2024-09-30 08:22 | XMS_ITS | Clinical Summary ---
Author Organization [facility] Address [address] [place] [address] Care Team Providers Care Ophthalmology Technician Name Role Phone Luis Kathleen MD Primary [...] complete this topic Insurance [employer] Care Teams Ophthalmology Technician Relationship Specialty Start Date End Date Luis Kathleen MD [address] [place] [address] PCP - General FAMILY PRACTICE 04/11/23
--- OUTSIDE RECORDS SUMMARY | 2024-09-30 08:22 | XMS_ITS | Encounter Summary ---
Author Organization [facility] [place] [address] [place] [address] Care Team Providers Care Orthotist Name Role Phone Unavailable Primary Care Provider Unavailabl e Prior Encounters Date Type Department Care Team Description 07/14/2019 Converted CPS Chart Documents [facility] [address] [place] [address] <No scans attached> 07/14/2019 Converted 13x Documents [facility] [address] [place] [address] <No scans attached> Plan of Treatment Not on file Procedures Procedure Name Priority Date/Time Associated Diagnosis Comments 9 CEMENT CROWN Routine 08/17/2014 2:00 AM WELLHEAD PUMPER 8 CEMENT CROWN Routine 08/17/2014 2:00 AM WELLHEAD PUMPER NC X-RAY Routine 08/17/2014 2:00 AM WELLHEAD PUMPER EXTERNAL BLEACHING - PER ARCH - PERFORMED IN OFFICE Routine 08/14/2014 2:00 AM WELLHEAD PUMPER 9 CEREC PROF CRN CRTSY Routine 5 2:00 AM WELLHEAD PUMPER 8 CEREC PROF CRN CRTSY Routine 5 2:00 AM WELLHEAD PUMPER TOPICAL APPLICATION OF FLUORIDE VARNISH Routine 08/14/2014 2:00 AM WELLHEAD PUMPER COMPREHENSIVE ORAL EVALUATION - NEW OR ESTABLISHED PATIENT Routine 08/14/2014 2:00 AM WELLHEAD PUMPER ORAL HYGIENE INSTRUCTIONS Routine 2014 2:00 AM WELLHEAD PUMPER PROPHYLAXIS - ADULT Routine 08/14/2014 2 :00 AM WELLHEAD PUMPER PANORAMIC RADIOGRAPHIC IMAGE Routine 08/14/2014 2:00 AM WELLHEAD PUMPER INTRAORAL - COMPREHENSIVE SERIES OF RADIOGRAPHIC IMAGES Routine 08/14/2014 2:00 AM WELLHEAD PUMPER INTRAORAL PHOTO Routine 08/14/2014 2:00 AM WELLHEAD PUMPER INTRAORAL PHOTO Routine 08/14/2014 2:00 AM WELLHEAD PUMPER INTRAORAL PHOTO Routine 08/14/2014 2:00 AM WELLHEAD PUMPER 9 MIDFL COMPOSITE FILLING Routine 2014 2:00 AM WELLHEAD PUMPER 8 MIDFL COMPOSITE FILLING Routine 2014 2:00 AM WELLHEAD PUMPER 18 SRIKANTH COMPOSITE FILLING Routine 08/14/19 15 2:00 AM WELLHEAD PUMPER 15 LO COMPOSITE FILLING Routine 08/14/19 15 2:00 AM WELLHEAD PUMPER 2 LO COMPOSITE FILLING Routine 5 2:00 AM WELLHEAD PUMPER 10 L COMPOSITE FILLING Routine 5 2:00 AM WELLHEAD PUMPER 30 B COMPOSITE FILLING Routine 5 2:00 AM WELLHEAD PUMPER Visit Diagnoses Not on file
--- OUTSIDE RECORDS SUMMARY | 2024-09-30 08:22 | XMS_ITS | Clinical Summary ---
Author Organization [facility] Address [address] [place] [address] Care Team Providers Care Personal Loan Specialist Name Role Phone Unavailable Primary Care Provider Unavailabl e Source Comments [facility],non-owned Affiliates and Associated Physician Practices is amultiple site organization consisting of ambulatory clinics and hospital sitesin [place], [place], [place] and [place]. This disclosure is being madepursuant to the Care Everywhere program and may not contain all information available regarding this patient. Last updated 18.[facility] Allergies No known active allergies Medications * Be aware that medications may not be up to date on this document. Alwaysverify current medications with the patient. Medication Sig Dispensed Refills Start Date End Date Status amoxicillin-clavulanate (AUGMENTIN) 250-125 MG tablet Take 250 mg by mouth every 8 hours Active Immunizations Name Administration Dates Next Due Covid [employer] primary monoval ent 12+ yr 0.3mL Purple [...] Comments Blood Pressure 130/80 08/26/2020 1:51 PM COLD ROLLING MACHINE SETTER Pulse 71 08/26/2020 1:51 PM COLD ROLLING MACHINE SETTER Temperature 36.6 C (97.8 F) 08/24/2020 6:00 AM COLD ROLLING MACHINE SETTER Respiratory Rate 18 08/24/2020 6:00 AM COLD ROLLING MACHINE SETTER Oxygen Saturation 97% 08/26/2020 1:51 PM COLD ROLLING MACHINE SETTER Inhaled Oxygen Concentration - - Weight 84.6 kg (186 lb 6.4 oz) 08/26/2020 1:51 P M COLD ROLLING MACHINE SETTER Height 165.1 cm (5' 5 ) 08/26/2020 1:51 PM COLD ROLLING MACHINE SETTER Body Mass Index 31.02 08/26/2020 1:51 PM COLD ROLLING MACHINE SETTER Plan of Treatment Health Maintenance Due Date [...]
--- NOTE | 2024-09-30 08:53 | ED_ITS ---
HPI - Back Pain/Injury General Chief Complaint: Back Pain/Injury Stated Complaint: back pain Time Seen by Provider: 09/30/24 08:12 Source: patient and family Mode of arrival: ambulatory Limitations: no limitations History of Present Illness HPI Narrative: Patient presents with low back pain occurring for the past several weeks. This was acutely exacerbated when his and son jumped on his back approximately 5 days ago making it worse. He was seen at urgent care yesterday and given a Toradol shot, steroids, and He was prescribed tizanidine but seems to be getting no relief. Pain is worse with movement. In particular he notes that he does not have any neck pain but when he performs neck flexion he experiences low back pain and similarly when he performs right dorsiflexion this causes left low back pain. He states initially he briefly felt like he had paresthesias but this resolved and has not recurred. No saddle anesthesia. No bowel or bladder incontinence. Not on anticoagulation. No fevers. Not on steroids previous to the prescription given at urgent care. Known immunocompromised state. No abdominal pain. Denies hematuria, urgency, frequency, or dysuria. Related Data Home Medications ?Medication ?Instructions ?Recorded ?Confirmed ?Last Taken ?Type levothyroxine 50 mcg tablet 50 mcg PO DAILY 04/26/22 07/08/24 05/05/22 07:30 History escitalopram oxalate 10 mg tablet 10 mg PO DAILY 07/08/24 07/08/24 Unknown History lisdexamfetamine 20 mg capsule 20 mg PO DAILY 07/08/24 07/08/24 Unknown History (Vyvanse) Allergies Allergy/AdvReac Type Severity Reaction Status Date / Time No Known Allergies Allergy Unknown Verified 09/30/24 07:22 [facility] Past Medical History Medical History History of obesity BMI 30-39.9 (03/29/2022) Nausea Frequent loose stools Social History Social History Smoking status: Never smoker Second hand tobacco smoke exposure: No Alcohol intake: current Alcohol use details: rarely - socially Substance use: former Substance use type: marijuana Other substance usage details: smoked last 10-15 years ago; denies IVDU Living arrangements: with family Additional living arrangements comments: , child Occupation/Education: occupation 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 HEAD: Normocephalic, atraumatic. EYES: Non injected, non icteric ENT: Nares clear, no rhinorrhea or epistaxis. NECK: Supple. CHEST: Speaking in full sentences. No respiratory distress. HEART: Regular rate and rhythm. . ABDOMEN: Soft, nondistended. EXTREMITIES: Normal range of motion. No lower extremity edema. 5/5 strength with bilateral ankle dorsiflexion/plantar flexion, bilateral knee flexion/extension, bilateral hip flexion/abduction/adduction. BACK: No scars/erythema/ecchymosis. Cervical, thoracic, and lumbar spinous processes are midline without obvious bony step-offs or tenderness to palpation. Patient has some paraspinal tenderness to palpation in the left lumbar area but without appreciable spasm. He is able to demonstrate flexion extension and [id number]/rotational movement about the lumbar spine although does appear to be in discomfort while doing so SKIN: Warm, dry, no rash. NEURO: No focal deficits. Alert and oriented x3. Sensation intact to gross touch throughout bilateral thighs knees in calves. PSYCH: Normal mood and affect. Course Vital Signs Vital signs: Vital Signs Temperature 97.6 F 09/30/24 07:19 Pulse Rate 89 09/30/24 07:19 Respiratory Rate 17 09/30/24 07:19 Blood Pressure 153/83 H 09/30/24 07:19 Pulse Oximetry 100 09/30/24 07:19 Oxygen Delivery Room Air 09/30/24 07:19 Temperature 97.6 F 09/30/24 07:19 Pulse Rate 89 09/30/24 07:19 Respiratory Rate 17 09/30/24 07:19 Blood Pressure 153/83 H 09/30/24 07:19 Pulse Oximetry 100 09/30/24 07:19 Oxygen Delivery Room Air 09/30/24 07:19 MDM - Back Pain/Injury MDM Narrative Medical decision making narrative: Patient presents with back pain this been going on for several weeks but acutely exacerbated 5 days ago when his son jumped on his back making it worse. In the emergency department he is afebrile with vital signs notable for hypertension. Back has no deformities, external skin changes, or signs of trauma. Curvature is within normal limits. No tenderness is noted on palpation of the spinous processes which are midline. Lumbar paraspinal muscles are without spasm but there is left sided tenderness. Patient demonstrates flexion, extension, and suwy-[id number] rotation of the lumbar spine. Sensation to the lower extremities is normal bilaterally. Dorsi/plantar flexion is normal bilaterally. They do not have any other red flags for fracture, malignancy, infection (e.g. spinal epidural abscess), or aortic/vascular: Age, no trauma, not on chronic steroids, no symptoms of cancer, no fever, IV drug use, HIV, immunosuppression, abdominal pain, tearing pain, syncope, or urinary symptoms. However, patient does appear to be in tremendous pain in his pain has been going on for several weeks at this point. Patient given analgesic narcotic medication well in the emergency department and will proceed with CT imaging. This shows evidence of bulging discs. We discussed the importance of multimodal pain management and that patient would likely require further workup and management to possibly include physical therapy, advanced imaging, etc.. Patient advised that the data behind the use of steroids is not great but he could continue to take them if desired. Advised to take the tyeg-acw-umtrufl medications prescribed any could continue to use the muscle relaxer prescribed at urgent care yesterday and had the topical lidocaine patch. He is also provided a short course of narcotic pain medication for breakthrough pain. We discussed the risks benefits and alternatives and he verifies understanding. Stable for discharge. Return precautions given. Differential Diagnosis Differential diagnosis: Likely lumbar radiculopathy, sciatica, strain of lumbar region and discitis Imaging Data Radiologist's impression: Impressions Cervical Spine CT 09/30/24 09:34 IMPRESSION: No acute osseous abnormality cervical spine. Thoracic/Lumbar Spine CT 09/30/24 10:02 IMPRESSION: No acute osseous abnormality of the thoracic spine. Multilevel mild disc bulge. Discharge Plan Discharge Clinical Impression: Bulging discs, Lumbar disc herniation Patient Disposition: Home Condition: Stable Instructions: Antibiotic Form, Lumbar Disc Herniation (ED), Acute Low Back Pain (ED), Opioid Safety (ED), Lower Back Exercises (ED) Additional Instructions: Acetaminophen/Tylenol (maximum 4000 mg per day) is safe to take with NSAIDs (ibuprofen/Motrin) for pain relief. You can continue to take the muscle relaxer as well. You can add the topical approach. For breakthrough pain opiate medications have been prescribed. Use the aggressive multimodal pain strategy to balance some rest with staying active in performing stretching exercises. Follow-up with primary care physician as you will likely require physical therapy, alternative pain strategy regimen, advanced imaging such as MRI, etc. Return to the ER if you have increased pain in your back, you develop lower extremity weakness/numbness/paralysis, you have numbness or tingling in your private parts, or you are unable to control your ability to urinate/stool. Patient Language: Welsh Prescriptions: New acetaminophen 500 mg capsule 1,000 mg PO Q6H PRN (Reason: pain) Qty: 30 0RF lidocaine 4 % adhesive patch,medicated 1 patch topical DAILY PRN (Reason: pain) Qty: 10 0RF ibuprofen 600 mg tablet 600 mg PO TID PRN (Reason: pain) Qty: 30 0RF oxycodone 5 mg capsule 5 mg PO Q8H PRN (Reason: pain) 5 Days Qty: 14 0RF No Action escitalopram oxalate 10 mg tablet 10 mg PO DAILY lisdexamfetamine [Vyvanse] 20 mg capsule 20 mg PO DAILY levothyroxine 50 mcg tablet 50 mcg PO DAILY rabeprazole 20 mg tablet,delayed release (DR/EC) 20 mg PO DAILY Qty: 90 3RF Follow-up/Referrals: Parker,Reinier Urias PA-C [Primary Care Provider] - Stand Alone Forms: Work/School Release IP Time of Disposition: 10:48
[2024-09-30] MEDS: HYDROcodone/acetaminophen (*CRX) 5-325 MG TABLET 1 TAB PO (09:05)
[2024-09-30] MEDS: diazePAM (*CRX) 5 MG TABLET 2.5 MG PO (11:05)
== END 2024-09-30 11:10 | disposition home or self-care (01) ==
PROVIDERS: Emergency Provider Student in an Organized Health Care Education/Training Program; PCP Physician Assistant
DX: M51.26 Other intervertebral disc displacement, lumbar region (principal); M51.379 Other intervertebral disc degeneration, lumbosacral region without mention of lumbar back pain or lower extremity pain
CPT/HCPCS: 72125; 72128; 72131; 99284; A9270